=== PATIENT | female | born 1950 | race Caucasian/White ===

== ENCOUNTER 2023-08-09 08:43 | Day surgery (SDC) | payer MEDICARE ==
[~2023-08-09] VITALS: Ht 167.6 cm; Wt 94.0 kg
[~2023-08-09 08:43] MED LIST: ACTOS 15MG TAB15 MG PO; ACTOS30 MG PO; AMOXICILLIN 50500 MG PO; ASPIRIN 32325 MG/TAB PO; AVAPRO300 M1 PO; AZITHROMYCIN500 MG PO; B-12 500 MCG PO; BIAXIN 500MG T500 MG PO; DIOVAN; FERRO-TIME325 MG PO; FORT1000TA PO; GLUCOPHAGE1000 MG PO; GLUCOSAMINE & C1 CA2 PO; GLUCOTROL 5M5 MG/TAB PO; LANTUS SOLOS100 U/ML SQ; LASIX 40MG TABL40 MG PO; LIPOFEN150 MG PO; LOFIBRA160 MG PO; LUTEIN20 M1 PO; MEGA MULTIVITAM1 TAB PO; NORCO 325 MG-7.1 TAB PO; NS 1,000 ML IV SCH; PRESERVISION1 SGL PO; PRINIVIL10 MG PO; PROTONIX 40MG T40 MG PO; THERA-D 20002000 IU PO; TOPROL XL50 MG PO; TURMERIC500 MG PO; VITAMIN D 1001000 IU PO; VITAMIN D31000 I1 PO; ZIAC 10/6.25M1 UDTAB PO
[2023-08-09] MEDS ORDERED: Rocuronium 50 MG/5 ML Multi-Dose VIAL ONE (09:59)
[2023-08-09] MEDS ORDERED: fentaNYL 50 MCG/ML 5 ML VIAL ONE (09:59)
[2023-08-09] MEDS ORDERED: Lidocaine PF 2% (20 MG/ML) 5 ML VIAL ONE (09:59)
--- NOTE | 2023-08-09 10:01 | NUR ---
ADMITTED TO ROOM 7 AMBULATORY AND IS ALERT AND ORIENTED X3. CONSENTS SIGNED FOR GENERAL ANESTHESIA AND SURGERY. NO QUESTIONS. PATIENT IS ACCOMPANIED BY DAUGHTER AND STATES SHE WILL BE STAYING WITH DAUGHTER OVERNIGHT. LABS DRAWN AND ORIENTED TO ROOM. CALL LIGHT IN REACH AND SIDERAILS UP X2.
[2023-08-09 10:03] VITALS: BP 133/75; PULSE 93; TEMP 97.8
[2023-08-09] MEDS ORDERED: ZYLOPRIM 300MG300 MG PO (10:11)
[2023-08-09] MEDS ORDERED: TIAZAC180 MG PO (10:13)
[2023-08-09] MEDS ORDERED: GLUCOTROL XL10 MG PO (10:14)
[2023-08-09] MEDS ORDERED: ACTOS 15MG TAB15 MG PO (10:14)
[2023-08-09] MEDS ORDERED: K-TAB20 PO (10:15)
[2023-08-09] MEDS ORDERED: GLUCOSAMINE & C1 CA1 PO (10:16)
[2023-08-09] MEDS ORDERED: MASON NATURAL2000 IU PO (10:17)
[2023-08-09] MEDS ORDERED: BERBERINE PO (10:18)
[2023-08-09 10:46] LABS: CALCIUM 9.2 mg/dL (8.4-10.2); CREATININE, serum 3.29 mg/dL (0.57-1.11); POTASSIUM 3.9 mEq/L (3.5-4.5)
[2023-08-09] MEDS ORDERED: Ondansetron 4 MG/2 ML VIAL ONE (11:07)
[2023-08-09] MEDS ORDERED: dexAMETHasone 10 MG/ML VIAL ONE (11:07)
[2023-08-09] MEDS ORDERED: Topical Skin Adhesive 1 EACH (1 ML) TOP ONE (11:15)
[2023-08-09] MEDS ORDERED: HYDROmorphone 2 MG/1 ML VIAL IV PRN (11:30)
[2023-08-09] MEDS ORDERED: droPERidol 2.5 MG/ML 2 ML VIAL IV PRN (11:30)
[2023-08-09] MEDS ORDERED: fentaNYL 50 MCG/ML 2 ML VIAL IV PRN (11:30)
[2023-08-09] MEDS ORDERED: Ondansetron 4 MG/2 ML VIAL IV PRN ×2 (11:30→13:00)
[2023-08-09] MEDS ORDERED: Neostigmine 1 MG/ML 10 ML Multi-Dose Vial ONE (11:30)
[2023-08-09] MEDS ORDERED: Morphine 4 MG/ML VIAL IV PRN (11:30)
[2023-08-09] MEDS ORDERED: Glycopyrrolate 0.2 MG/ML 1 ML VIAL ONE (11:30)
[2023-08-09] MEDS ORDERED: Meperidine 50 MG/ML 1 ML VIAL IV PRN (11:30)
[2023-08-09 12:30] VITALS: BP 116/62; PULSE 89; TEMP 97.8
[2023-08-09 12:45] VITALS: BP 110/71; PULSE 77
[2023-08-09] MEDS ORDERED: NORCO 325 MG-51 TAB PO (12:59)
[2023-08-09 13:00] VITALS: BP 124/70; PULSE 77
[2023-08-09] MEDS ORDERED: Acetaminophen 325 MG TAB PO PRN (13:00)
[2023-08-09 13:15] VITALS: BP 123/67; PULSE 78
[2023-08-09 13:45] VITALS: BP 125/69; PULSE 76
--- NOTE | 2023-08-09 16:54 | NUR ---
5300-0704: PT TO RECOVERY BAY 7 FROM PACU S/P [employer] CATH PLACEMENT A&O, PLACED ON MONITOR, VSS ON RA DRSG CDI DENIES COMPLAINT RECEIVED REPORT AND ASSUMED CARE OF PT FROM JAMAAL ROBERTSON DTR AT BEDSIDE PROVIDED FOOD/FLUIDS, TOLERATING WELL PT C/O MODERATE AND INCREASING PAIN JUST PRIOR TO PLANNED D/C - WORSE WITH MOVEMENT - GIVEN 25MCG IV FENTANYL AND 650MG PO APAP WITH GOOD RESULTS, WELL TOLERATED PT A&O, NAD, VSS ON RA, TOLERATING PO, IS WITHOUT SIGNIFICANT COMPLAINT, WITH STEADY GAIT BY THE END OF STAY IV D/C'D. D/C INSTRUCTIONS, FOLLOW UP REVIEWED AND HANDED TO PT. ALL QUESTIONS AND CONCERNS ADDRESSED TO PT SATISFACTION. TAKEN TO EXIT VIA W/C WITH ALL BELONGINGS AND PAPERWORK IN HAND, ASSISTED INTO PASSENGER SEAT OF POV. DTR TO DRIVE HOME.
== END 2023-08-09 14:10 | disposition home or self-care (01) ==
LOC: SDCO 08:43
PROVIDERS: Surgery
DX: N18.5 Chronic kidney disease, stage 5 (principal); K21.9 Gastro-esophageal reflux disease without esophagitis
CPT/HCPCS: C1750; J0690; J1100; J2405; J2704; J2710; J3010; J7030